=== PATIENT | female | born 1985 ===

== ENCOUNTER 2017-05-28 23:34 | Inpatient (IN) | payer MEDICAID ==
[~2017-05-28 23:34] MED LIST: Naloxone 0.4 mg/ml Inj (Adult) IVP STA
[2017-05-28] MEDS ORDERED: Naloxone 0.4 mg/ml Inj (Adult) IVP ONE (23:37)
[2017-05-28] MEDS ORDERED: Etomidate 20 mg/10ml Inj IV STA (23:39)
[2017-05-28] MEDS ORDERED: Succinylcholine 200 mg/10 ml Inj IV STA (23:39)
[2017-05-28] MEDS ORDERED: Propofol 10 mg/ml 1,000 MG/100 ML VIAL ONE (23:45)
[2017-05-28] MEDS: Propofol 10 mg/ml 1,000 MG/100 ML VIAL IV PRN (23:50)
--- NOTE | 2017-05-29 00:05 | ED PDOC ---
Arrival/HPI - General Time Seen by Provider: 05/29/17 00:01 Historian: Partner, EMS EM Caveat: Intubated - Critical Care Critical Care Minutes: Other (35 minutes) - History of Present Illness Narrative History of Present Illness (Text): 05/28/17 23:30 32 year old female, whose past medical history includes congenital absent left main, bypass surgery several years ago, AICD, and hypomagnesemia, presents to the emergency department by BLS for witnessed cardiac arrest. Patient's partner reports she was found unresponsive in the basement. He reports patient was found on the floor, turning blue, and urinated on herself. Before going downstairs partner states she took 30mg of Oxycontin. Partner preformed CPR until BLS came. Respiratory therapist was paged. Upon arrival patient was slightly responsive and give 2 doses of Narcan and began vomiting. Patient was intubated for airway protection. Partner reports no related history of substance abuse or history of smoking. HPI and ROS limited due to patient being intubated and decreased mental status. Lung Puller: Dr. Modi PMD: Dr. Hinkle Time/Duration: Prior to Arrival, 1/2 hour Symptom Onset: Sudden Symptom Course: Unchanged Context: Home Past Medical History - Provider Review Nursing Documentation Reviewed: Yes - Cardiac Hx Pacemaker: Yes Other/Comment: congential - Surgical History Hx Coronary Artery Bypass Graft: Yes - Anesthesia Hx Anesthesia: No - Suicidal Assessment Feels Threatened In Home Enviroment: No Family/Social History - Physician Review Nursing Documentation Reviewed: Yes Family/Social History: No Known Family HX Smoking Status: Never Smoked Allergies/Home Meds Allergies/Adverse Reactions: Allergies No Known Allergies Allergy (Verified 05/29/17 00:02) Home Medications: Home Meds Medication Instructions Recorded Confirmed Unobtainable 05/29/17 05/29/17 Review of Systems - Physician Review All systems were reviewed & negative as marked: Yes - Review of Systems Systems not reviewed;Unavailable: Intubated Physical Exam Vital Signs Reviewed: Yes Vital Signs Temp Pulse Resp BP Pulse Ox 05/29/17 04:04 153 H 32 H 107/62 50 L 05/29/17 03:30 151 H 32 H 102/46 L 52 L 05/29/17 03:17 147 H 30 H 104/44 L 47 L 05/29/17 03:04 137 H 32 H 91/62 L 57 L 05/29/17 03:02 136 H 30 H 83/49 L 53 L 05/29/17 02:50 137 H 28 H 94/48 L 31 L 05/29/17 02:45 136 H 28 H 118/55 L 48 L 05/29/17 02:38 28 H 48 L 05/29/17 02:30 117/70 05/29/17 02:17 129 H 28 H 117/76 52 L 05/29/17 02:08 109/82 05/29/17 02:02 121 H 28 H 109/82 68 L 05/29/17 01:47 123 H 26 H 112/43 L 98 05/29/17 01:36 117 H 28 H 104/65 73 L 05/29/17 01:32 28 H 73 L 05/29/17 01:17 115 H 30 H 118/70 79 L 05/29/17 01:02 106 H 36 H 106/64 90 L 05/29/17 00:46 91 H 42 H 118/70 97 05/29/17 00:32 93 H 24 112/84 97 05/28/17 23:58 109 H 24 137/82 95 05/28/17 23:45 115 H 24 165/104 H 99 05/28/17 23:34 98.1 F 101 H 18 134/102 H 97 - Systems Exam Head: Present: Normocephalic Pupils: Present: Other (2 minimal reactive and equal ) Extroacular Muscles: Present: EOMI Conjunctiva: Present: Normal Mouth: Present: Moist Mucous Membranes Neck: Present: Normal Range of Motion Respiratory/Chest: Present: Rhonchi (Rhonchi bilaterally), Other ((+) Intubation. (+)Vomiting in air way. (+)Midline scars on chest) Cardiovascular: Present: Regular Rate and Rhythm, Normal S1, S2. No: Murmurs Abdomen: Present: Distention (Mildly distended), Normal Bowel Sounds. No: Tenderness, Peritoneal Signs Back: Present: Normal Inspection Upper Extremity: Present: Normal Inspection. No: Cyanosis, Edema Lower Extremity: Present: Edema (1+ edema Bilaterally ) Skin: Present: Pale, Other (Cool to touch ). No: Rashes Medical Decision Making ED Course and Treatment: 05/28/17 23:30 Impression: 32 year old female presents for Cardiac Arrest. Patient was found unresponsive and intubation was done. Differential Diagnosis included but are not limited to: Overdose VS Seizure VS Vtac VS PE VS Brain hemorrhage Plan: -- ABG -- CT Cervical Spin -- CT head -- Labs -- Chest X-ray -- IV Fluids -- Diprivan -- Urinary Catheter insertion -- HCG -- Urinalysis -- Reassess and disposition Prior Visits: Notes and results from previous visits were reviewed. Patient was last seen in the emergency department on 03/24/14 complaining of chest pain with deep inspiration. Patient was discharged. Progress Notes: 05/28/17 23:30 Critical Care: Patient was seen immediately on arrival because of high probability of imminent or life threatening deterioration in patient's condition. Initial assessment, history, and exam were done. Information was taken from transport personnel. Patient was observed at bedside for initial response to treatment. Doctor Ruddy was contacted, and case discussed. Paged Respiratory Therapist paged. Sandy 05/28/17 23:43 23:32 and 23:36 2 doses of Narcon given and patient began to vomit. Suction tube interested and given patient 8mg of Zofran 05/28/17 23:43 PROCEDURE: INTUBATION Performed by the emergency provider Time: 23:43 Consent: Discussion of the risks, benefits, and alternatives to the procedure, along with informed consent family member was precluded by the urgency of the procedure and the patient condition. Timeout: A timeout to verify the correct patient, procedure, and site was performed. Indication: Airway protection and decreased mental status Pre-oxygenation: [id number] Medications: See MAR for details. ETT Size: 7 Confirmation: Cords directly visualized as tube passed, good bilateral breath sounds, positive CO2 detector color change, tube fogging, adequate chest rise, improving pulse oximetry reading, improved skin color, and absence of gastric sounds,. ETT Secured: The cuff was inflated and the tube was secured appropriately at a distance of 20cm at the lip. Post-Procedure: First attempted likely esophageal with no imminent desaturation. Attempted intubation with 7 tube with good color change and bilareral air sounds. Saturations somewhat better. tracheal Deep suction through tube which improved her saturation. Patient was given Propofol post- procedure. CXR Confirmation: Yes 05/29/17 00:03 Discussed case with Patient's medical record consultant Dr. Fox who is aware of patient's condition. Dr. Fox reports history of vtach and absent left main. Patient operated bypass surgery several years ago. Patient had an AICD put in several years ago. Dr. Fox reports no medical problems expect patient is hypomagnesemia. 05/29/17 01:16 Called to bed side patient began to desaturate. Adjusted tube placement and adjusted vent . Increased peep with moderate improvement. Increasingly difficult to oxygenate. Chest X-ray shows bilaterally diffuse airspace disease and ARDS 05/29/17 01:[address] ICU [address] Table Operator Dr. Garcia called to assisted and agrees with possible severe ARDS VS aspiration. Currently attempting to keep oxygenated as best as we can. EXAM: XR Chest, 1 View Dictated and Authenticated by: Elsie Jennings MD 05/29/2017 1:51 AM IMPRESSION: Tubes and catheters as described; bilateral perihilar airspace disease suggesting pulmonary edema; probable left lower lobe retrocardiac atelectasis 05/29/17 02:16 EKG shows Sinus tachy at 104 BPM with non-specific ST wave at V2, V6, VL. No ST elevations. Normal QTC [id number]. Interpreted by me. 05/29/17 02:50 PROCEDURE: CENTRAL LINE PLACEMENT Performed by the emergency provider, Time: 02:50 Consent: Discussion of the risks, benefits, and alternatives to the procedure, along with informed consent partner was precluded by the urgency of the procedure and the patient condition. Timeout: A timeout to verify the correct patient, procedure, and site was performed. Indication: Emergent access for critical drugs Anesthesia: Local anesthesia: None Skin Preparation: Hand hygiene performed prior to central venous catheter insertion. Sterile field, sterile drape, sterile technique, and cap and gown were used. The area was cleansed with 2% Chlorhexidine. Patient position: Supine Location: Left femoral Ultrasound guidance: No Technique: The landmarks for the line placement were identified. The vessel was cannulated and a non-tunneled 7.0 Fr triple lumen central line was placed using the Seldinger technique. Successful placement: Yes. Line sutured with silk and appropriate dressing applied. Assessment: Good patency and blood return through all three lumens. The ports were appropriately flushed. See post procedure Post-procedure: Patient tolerated the procedure well with no immediate complications. 05/29/17 03:20 Unable to oxygenate her likely due to large A-a gradiaent. Case discussed with Resident and Dr. Garcia who is aware and agrees with the plan. Patient will be admitted to ICU. pt remains in critical condition due to difficult oxygenation. 06/02/17 03:46 Reassessment Condition: Re-examined, Improving,but remains with symptoms - Critical Care Critical Care Minutes: 75 minutes, Other (35 minutes ) - Lab Interpretations Microbiology Results: Microbiology Results 05/29/17 00:03 Blood-Venous Blood Culture - Preliminary NO GROWTH AFTER 3 DAYS Lab Results: 05/29/17 00:00 Lab Results 05/29/17 01:45: pCO2 53 H, pO2 36.0 L*, HCO3 19.8 L, ABG pH 7.18 L*, ABG Total CO2 21.4 L, ABG O2 Saturation 64.5 L, ABG O2 Content 8.1 L, ABG Base Excess - 8.3 L, ABG Hemoglobin 9.1 L, ABG Carboxyhemoglobin 1.8 H, POC ABG HHb (Measured ) 34.6 H, ABG Methemoglobin 0.6, ABG O2 Capacity 12.6 L, Hgb O2 Saturation 63.0 L, FiO2 100.0 05/29/17 00:00: Alcohol, Quantitative < 10 05/29/17 00:00: Sodium 138, Potassium 3.4 L, Chloride 105, Carbon Dioxide 14 L, Anion Gap 22 H, BUN 11, Creatinine 0.9, Est GFR ( Amer) > 60, Est GFR ( Non-Af Amer) > 60, Random Glucose 247 H, Calcium 9.0, Magnesium 2.3 H, Total Bilirubin 0.2, AST 58 H, ALT 52, Alkaline Phosphatase 45, Lactate Dehydrogenase 592, Total Creatine Kinase 156, Troponin I < 0.01, NT-Pro-B Natriuret Pep 575 H , Total Protein 6.8, Albumin 3.9, Globulin 2.9, Albumin/Globulin Ratio 1.4, Lipase 159 I have reviewed the lab results: Yes Interpretation: Abnormal lab values - RAD Interpretation Radiology Orders: 05/29/17 00:05 X-RAY [CHEST PORTABLE] [RAD] Stat - EKG Interpretation Interpreted by ED Physician: Yes Type: 12 lead EKG - Medication Orders Current Medication Orders: Discontinued Medications Albuterol/Ipratropium (Duoneb 3 Mg/0.5 Mg (3 Ml) Ud) 3 ml IH STAT STA Stop: 05/29/17 01:37 Last Admin: 05/29/17 01:36 Dose: 3 ml Etomidate (Amidate) 20 mg IV ONCE STA Stop: 05/28/17 23:40 Last Admin: 05/28/17 23:39 Dose: 20 mg eMAR Start Stop Document 05/28/17 23:39 ND (Rec: 05/29/17 05:20 ND [id number]) Intravenous Solution Start Date 05/28/17 Start Time 23:39 End Date 05/28/17 End time 23:40 Total Infusion Time 1 Furosemide (Lasix) 40 mg IVP STAT STA Stop: 05/29/17 02:08 Last Admin: 05/29/17 03:21 Dose: Furosemide (Lasix) 40 mg IVP STAT STA Stop: 05/29/17 02:27 Last Admin: 05/29/17 02:30 Dose: 40 mg MAR Blood Pressure Document 05/29/17 02:30 SS (Rec: 05/29/17 05:07 SS [id number]) Blood Pressure Blood Pressure (100/60-150/90) 117/70 IVP Administration Document 05/29/17 02:30 SS (Rec: 05/29/17 05:07 SS [id number]) Charges for Administration # of IVP Administrations 1 Hydromorphone HCl (Dilaudid) 1 mg IVP STAT STA Stop: 05/29/17 01:01 Last Admin: 05/29/17 04:59 Dose: Magnesium Sulfate 2 gm/ Sodium (Chloride) 104 mls @ 102 mls/hr IVPB ONCE ONE Stop: 05/29/17 01:10 Last Admin: 05/29/17 03:32 Dose: Propofol (Diprivan) 1,000 mg in 100 mls @ 2.913 mls/hr IV .Q24H PRN; Protocol; 5 MCG/KG/MIN PRN Reason: TITRATE PER MD ORDER Last Admin: 05/29/17 05:33 Dose: 15 mcg/kg/min, 8.739 mls/hr eMAR Start Stop Document 05/29/17 05:33 JIHAN (Rec: 05/29/17 05:34 JIHAN [facility] [place]14ICUP) Intravenous Solution Start Date 05/29/17 Start Time 05:34 Titration Intervention Document 05/29/17 05:33 JIHAN (Rec: 05/29/17 05:34 JIHAN [facility] [id number]) Titration Intake Cumulative Intake (Rx) 100 Waste Amount 0 Container Volume 100 Titration Dosing Titration Dose 15 IV Rate 8.739 Intake/Decrease Started/Increased Cumulative Dose 1000 Sodium Chloride (Sodium Chloride 0.9%) 1,000 mls @ 999 mls/hr IV .Q1H1M STA Stop: 05/29/17 01:12 Last Admin: 05/28/17 23:40 Dose: 999 mls/hr eMAR Start Stop Document 05/28/17 23:40 SS (Rec: 05/29/17 04:55 SS [id number]) Intravenous Solution Start Date 05/28/17 Start Time 23:40 End Date 05/29/17 End time 00:15 Total Infusion Time 35 Levofloxacin/Dextrose (Levaquin 750mg) 750 mg in 150 mls @ 100 mls/hr IVPB STAT STA PRN Reason: Protocol Stop: 05/29/17 03:47 Last Admin: 05/29/17 03:08 Dose: 100 mls/hr eMAR Start Stop Document 05/29/17 03:08 SS (Rec: 05/29/17 05:06 SS [id number]) Intravenous Solution Start Date 05/29/17 Start Time 03:08 Nitroglycerin/Dextrose (Nitroglycerin 50 Mg/250 Ml D5w) 50 mg in 250 mls @ 1.5 mls/hr IV .Q24H PRN; 5 MCG/MIN PRN Reason: reduce pre load Last Admin: 05/29/17 02:21 Dose: 1.5 mls/hr eMAR Start Stop Document 05/29/17 02:21 SS (Rec: 05/29/17 05:11 SS [id number]) Intravenous Solution Start Date 05/29/17 Start Time 02:21 End Date 05/29/17 End time 02:50 Total Infusion Time 29 MAR Pulse and Blood Pressure Document 05/29/17 02:21 SS (Rec: 05/29/17 05:11 SS [id number]) Pulse Pulse Rate (60-90) 129 Blood Pressure Blood Pressure (100/60-150/90) 117/76 Meropenem 1 gm/ Sodium (Chloride) 100 mls @ 100 mls/hr IVPB STAT STA Stop: 05/29/17 03:33 Last Admin: 05/29/17 05:36 Dose: 100 mls/hr eMAR Start Stop Document 05/29/17 05:36 JIHAN (Rec: 05/29/17 05:36 JIHAN [facility] [id number]) Intravenous Solution Start Date 05/29/17 Start Time 05:36 End Date 05/29/17 End time 06:36 Total Infusion Time 60 Sodium Bicarbonate 100 meq/ (Dextrose/Sodium Chloride) 1,100 mls @ 100 mls/hr IV .Q11H STA Stop: 05/29/17 14:36 Last Admin: 05/29/17 06:00 Dose: 100 mls/hr eMAR Start Stop Document 05/29/17 06:00 JIHAN (Rec: 05/29/17 06:00 JIHAN [facility] [id number]) Intravenous Solution Start Date 05/29/17 Start Time 06:00 End Date 05/29/17 End time 18:00 Total Infusion Time 720 Potassium Chloride (Potassium Chloride 10 Meq/100 Ml) 10 meq in 100 mls @ 50 mls/hr IVPB Q2H JAYDEN Stop: 05/29/17 07:59 Last Admin: 05/29/17 05:58 Dose: 50 mls/hr eMAR Start Stop Document 05/29/17 05:58 JIHAN (Rec: 05/29/17 05:58 JIHAN [facility] [id number]) Intravenous Solution Start Date 05/29/17 Start Time 05:58 End Date 05/29/17 Dexmedetomidine HCl (Precedex 4 Mcg/Ml (100 Ml)) 400 mcg in 100 mls @ 4.855 mls /hr IV .[id number] PRN; Protocol; 0.2 MCG/KG/HR PRN Reason: Sedation Potassium Chloride (Potassium Chloride 10 Meq/100 Ml) 10 meq in 100 mls @ 50 mls/hr IVPB ONCE ONE Stop: 05/29/17 09:37 Last Admin: 05/29/17 07:41 Dose: 50 mls/hr eMAR Start Stop Document 05/29/17 07:41 JIHAN (Rec: 05/29/17 07:41 JIHAN [facility] [id number]) Intravenous Solution Start Date 05/29/17 Start Time 07:41 End Date 05/29/17 Potassium Chloride (Potassium Chloride 10 Meq/100 Ml) 10 meq in 100 mls @ 50 mls/hr IVPB ONCE ONE Stop: 05/29/17 09:38 Last Admin: 05/29/17 07:40 Dose: 50 mls/hr eMAR Start Stop Document 05/29/17 07:40 GLI (Rec: 05/29/17 10:52 GLI [facility] [place]14ICUP) Intravenous Solution Start Date 05/29/17 Start Time 07:40 End Date 05/29/17 Vasopressin 20 units/ Dextrose 101 mls @ 9.09 mls/hr IV .Q11H7M JAYDEN; 0.03 U/MIN PRN Reason: Protocol Last Admin: 05/29/17 08:10 Dose: 9.09 mls/hr eMAR Start Stop Document 05/29/17 08:10 GLI (Rec: 05/29/17 10:55 GLI [facility] [place]14ICUP) Intravenous Solution Start Date 05/29/17 Start Time 08:10 End Date 05/29/17 MAR Blood Pressure Document 05/29/17 08:10 GLI (Rec: 05/29/17 10:55 GLI [facility] [place]14ICUP) Blood Pressure Blood Pressure (100/60-150/90) 60/38 Lorazepam (Ativan) 2 mg IVP ONCE ONE PRN Reason: Protocol Stop: 05/29/17 01:01 Last Admin: 05/29/17 00:48 Dose: 2 mg IVP Administration Document 05/29/17 00:48 SS (Rec: 05/29/17 04:57 SS [id number]) Charges for Administration # of IVP Administrations 1 Naloxone HCl (Narcan) 0.4 mg IVP ONCE STA Stop: 05/28/17 23:28 Last Admin: 05/28/17 23:34 Dose: 0.4 mg IVP Administration Document 05/28/17 23:34 ND (Rec: 05/29/17 05:18 ND [id number]) Charges for Administration # of IVP Administrations 1 Naloxone HCl (Narcan) 0.4 mg IVP ONCE ONE Stop: 05/28/17 23:38 Last Admin: 05/28/17 23:37 Dose: 0.4 mg IVP Administration Document 05/28/17 23:37 ND (Rec: 05/29/17 05:24 ND [id number]) Charges for Administration # of IVP Administrations 1 Ondansetron HCl (Zofran Inj) 8 mg IVP ONCE STA Stop: 05/28/17 23:39 Last Admin: 05/28/17 23:38 Dose: 8 mg IVP Administration Document 05/28/17 23:38 ND (Rec: 05/29/17 05:23 ND [id number]) Charges for Administration # of IVP Administrations 1 Rocuronium Hawkeye (Zemuron) 50 mg IVP ONCE ONE Stop: 05/29/17 00:59 Last Admin: 05/29/17 01:02 Dose: 50 mg IVP Administration Document 05/29/17 01:02 SS (Rec: 05/29/17 05:00 SS [id number]) Charges for Administration # of IVP Administrations 1 Sodium Bicarbonate (Sodium Bicarbonate 8.4% (50 Meq) Syringe) 50 meq IVP ONCE ONE Stop: 05/29/17 02:33 Last Admin: 05/29/17 02:40 Dose: 50 meq IVP Administration Document 05/29/17 02:40 ND (Rec: 05/29/17 03:19 ND [id number]) Charges for Administration # of IVP Administrations 1 Sodium Bicarbonate (Sodium Bicarbonate 8.4% (50 Meq) Syringe) 50 meq IVP ONCE STA Stop: 05/29/17 02:46 Last Admin: 05/29/17 02:50 Dose: 50 meq IVP Administration Document 05/29/17 02:50 ND (Rec: 05/29/17 03:27 ND [id number]) Charges for Administration # of IVP Administrations 1 Succinylcholine Chloride (Quelicin) 100 mg IV ONCE STA Stop: 05/28/17 23:40 Last Admin: 05/28/17 23:39 Dose: 100 mg eMAR Start Stop Document 05/28/17 23:39 ND (Rec: 05/29/17 05:22 ND [id number]) Intravenous Solution Start Date 05/28/17 Start Time 23:40 End Date 05/28/17 End time 23:41 Total Infusion Time 1 - Scribe Statement The provider has reviewed the documentation as recorded by the Lola Angelo Provider Scribe Attestation: All medical record entries made by the Scribe were at my direction and personally dictated by me. I have reviewed the chart and agree that the record accurately reflects my personal performance of the history, physical exam, medical decision making, and the department course for this patient. I have also personally directed, reviewed, and agree with the discharge instructions and disposition. Disposition/Present on Arrival - Present on Arrival Any Indicators Present on Arrival: No History of DVT/PE: No History of Uncontrolled Diabetes: No Urinary Catheter: No History Surgical Site Infection Following: None - Disposition Have Diagnosis and Disposition been Completed?: Yes Diagnosis: Respiratory failure with hypoxia Disposition: HOSPITALIZED Disposition Time: 02:00 Patient Plan: ICU Condition:
[2017-05-29] MEDS ORDERED: Magnesium Sulfate 2 GM in Sodium Chloride 0.9% 100 ML IVPB ONE (00:09)
[2017-05-29] MEDS ORDERED: Sodium Chloride 0.9% 1,000 ML IV STA (00:12)
[2017-05-29 00:39] LABS: ALB/GLOB RATIO 1.4 (1.1-1.8); ALBUMIN 3.9 g/dL (3.0-4.8); ALT/SGPT 52 U/L (7-56); AST/SGOT 58 U/L (14-36); BLOOD UREA NITROGEN 11 mg/dL (7-21); GFR AFRICAN-AMERICAN > 60; GFR NON-AFRICAN AMERICAN > 60; LIPASE 159 U/L (23-300); MAGNESIUM 2.3 mg/dL (1.7-2.2)
[2017-05-29 00:50] LABS: B-TYPE NATRIURETIC PEPTIDE 575 pg/mL (0-450); TROPONIN I < 0.01 ng/mL
[2017-05-29] MEDS ORDERED: Rocuronium 10 mg/ml (5 ml) IVP ONE (00:58)
[2017-05-29] MEDS ORDERED: HYDROmorphone 1 mg/ml ISec IVP STA (01:00)
[2017-05-29] MEDS ORDERED: Albuterol-Ipratrop 3 mg / 0.5 (3 ml) UD ONE (01:36)
[2017-05-29] MEDS ORDERED: Albuterol-Ipratrop 3 mg / 0.5 (3 ml) UD IH STA (01:36)
--- NOTE | 2017-05-29 01:51 | RAD ---
EXAM: XR Chest, 1 View EXAM DATE/TIME: 05/29/2017 12:05 AM CLINICAL HISTORY: 32 years old, female; Abnormal findings; Other: Intubated; coronary artery disease; prior bypass surgery TECHNIQUE: Frontal view of the chest. COMPARISON: There are no prior studies for comparison. FINDINGS: Tubes and catheters: Endotracheal tube is in place. Tip of the tube is at the level of the thoracic inlet. Nasogastric tube is present. Side port and tip projects in the stomach. There are pacer/defibrillator leads. There is no pacing apparatus. Heart, mediastinum and tesha: Heart size is normal. Mediastinal and hilar contours are unremarkable. Vascularity: Vascularity is difficult to evaluate. Lungs: There is bilateral airspace disease greatest in a perihilar distribution. There is left retrocardiac opacity. Pleural spaces: There may be a small left effusion. Bony structures: There are postsurgical changes of median sternotomy. Upper abdomen: There is a paucity of bowel gas in the upper abdomen IMPRESSION: Tubes and catheters as described; bilateral perihilar airspace disease suggesting pulmonary edema; probable left lower lobe retrocardiac atelectasis
[2017-05-29 01:53] LABS: ARTERIAL BLOOD GAS HCO3 19.8 mmol/L (21-28); ARTERIAL BLOOD GAS HEMOGLOBIN 9.1 g/dL (11.7-17.4); ARTERIAL BLOOD GAS O2 CAPACITY 12.6 mL/dl (16-24); ARTERIAL BLOOD GAS O2 CONTENT 8.1 ML/dl (15-23); ARTERIAL BLOOD GAS O2 SAT 64.5 % (95-98); ARTERIAL BLOOD GAS PCO2 53 mm/Hg (35-45); ARTERIAL BLOOD GAS TCO2 21.4 mmol.L (22-28)
[2017-05-29] MEDS ORDERED: levoFLOXacin 750 mg in D5W 750 MG/150 ML BAG IVPB STA (02:18)
[2017-05-29] MEDS ORDERED: Meropenem IV 1 gm in NS 50 ML IVPB STA (02:19)
[2017-05-29] MEDS ORDERED: Nitroglycerin 50mg in D5W 50 MG/250 ML BOTTLE IV PRN (02:21)
[2017-05-29] MEDS ORDERED: Sodium Bicarbonate (8.4%) 50 Meq Syringe IVP ONE (02:32)
[2017-05-29] MEDS ORDERED: Meropenem 1 GM in Sodium Chloride 0.9% 100 ML IVPB STA (02:34)
[2017-05-29] MEDS ORDERED: Rocuronium 10 mg/ml (5 ml) ONE (02:45)
[2017-05-29] MEDS ORDERED: Sodium Bicarbonate (8.4%) 50 Meq Syringe IVP STA (02:45)
[2017-05-29 02:50] LABS: URINE BILIRUBIN NEGATIVE (NEGATIVE); URINE BLOOD SMALL (NEGATIVE); URINE GLUCOSE (UA) 100 mg/dL (NEGATIVE); URINE LEUKOCYTE ESTERASE NEGATIVE Leu/uL (NEGATIVE); URINE NITRATE NEGATIVE (NEGATIVE); URINE PROTEIN 100 mg/dL (<30 mg/dL); URINE UROBILINOGEN 0.2 E.U./dL (<1 E.U./dL)
[2017-05-29 02:52] LABS: URINE COLOR LIGHT YELLOW (YELLOW)
[2017-05-29 02:53] LABS: URINE APPEARANCE CLEAR (CLEAR)
[2017-05-29 02:58] LABS: ARTERIAL BLOOD GAS PH 7.18 (7.35-7.45)
[2017-05-29 03:03] LABS: BARBITURATES, UR NEGATIVE (NEGATIVE); BENZODIAZEPINES, UR NEGATIVE (NEGATIVE); OPIATES, UR NEGATIVE (NEGATIVE); PHENCYCLIDINE, UR NEGATIVE (NEGATIVE)
[2017-05-29 03:13] LABS: URINE BACTERIA FEW (NEG); URINE EPITHELIAL CELLS 0 - 2 /hpf (0-5); URINE WBC 0 - 2 /hpf (0-6)
--- NOTE | 2017-05-29 03:22 | CP.PCM.CON ---
History of Present Illness - History of Present Illness History of Present Illness: PGY-2 ICU consult 32 year old female with past medical history of congenital absent left main, bypass surgery several years ago, AICD, and hypomagnesemia, presents to the emergency department by for witnessed cardiac arrest. Patient's partner at bedside reports she was found unresponsive in the basement. He he heard a thump and found her on the floor and she had urinated on herself. He starts there was about 2-3 minutes before he found the patient and another 3-5 before EMS arrived. Per partner, EMS gave her narcan, and began compressions with possible shock. He states that before going downstairs partner states she took 30mg of Oxycontin. Partner preformed CPR until BLS came. Per ED note upon arrival patient was slightly responsive and give 2 doses of Narcan and began vomiting. Patient was intubated for airway protection. She received IVF. Partner reports no related history of substance abuse or history of smoking. HPI and ROS limited due to patient being intubated and decreased mental status. Past Patient History - Past Social History Smoking Status: Never Smoked - CARDIAC Hx Pacemaker: Yes Other/Comment: congential - PSYCHIATRIC Hx Substance Use: Yes - SURGICAL HISTORY Hx Coronary Artery Bypass Graft: Yes - ANESTHESIA Hx Anesthesia: No Meds Allergies/Adverse Reactions: Allergies Allergy/AdvReac Type Severity Reaction Status Date / Time No Known Allergies Allergy Verified 05/29/17 00:02 - Medications Medications: Current Medications Propofol (Diprivan) 1,000 mg in 100 mls @ 2.913 mls/hr IV .Q24H PRN; Protocol; 5 MCG/KG/MIN PRN Reason: TITRATE PER MD ORDER Levofloxacin/Dextrose (Levaquin 750mg) 750 mg in 150 mls @ 100 mls/hr IVPB STAT STA PRN Reason: Protocol Stop: 05/29/17 03:47 Nitroglycerin/Dextrose (Nitroglycerin 50 Mg/250 Ml D5w) 50 mg in 250 mls @ 1.5 mls/hr IV .Q24H PRN; 5 MCG/MIN PRN Reason: reduce pre load Meropenem 1 gm/ Sodium (Chloride) 100 mls @ 100 mls/hr IVPB STAT STA Stop: 05/29/17 03:33 Sodium Bicarbonate (Sodium Bicarbonate 8.4% (50 Meq) Syringe) 50 meq IVP ONCE STA Stop: 05/29/17 02:46 Results - Vital Signs Recent Vital Signs: Last Vital Signs Temp Pulse Resp BP 109/82 05/29/17 02:08 Pulse Ox - Labs Result Diagrams: 05/29/17 00:00 Labs: Laboratory Results - last 24 hr 05/29/17 05/29/17 05/29/17 00:00 00:00 01:45 pCO2 53 H pO2 36.0 L* HCO3 19.8 L ABG pH 7.18 L* ABG Total CO2 21.4 L ABG O2 Saturation 64.5 L ABG O2 Content 8.1 L ABG Base Excess -8.3 L ABG Hemoglobin 9.1 L ABG Carboxyhemoglobin 1.8 H POC ABG HHb (Measured) 34.6 H ABG Methemoglobin 0.6 ABG O2 Capacity 12.6 L Hgb O2 Saturation 63.0 L FiO2 100.0 Sodium 138 Potassium 3.4 L Chloride 105 Carbon Dioxide 14 L Anion Gap 22 H BUN 11 Creatinine 0.9 Est GFR ( Amer) > 60 Est GFR (Non-Af Amer) > 60 Random Glucose 247 H Calcium 9.0 Magnesium 2.3 H Total Bilirubin 0.2 AST 58 H ALT 52 Alkaline Phosphatase 45 Lactate Dehydrogenase 592 Total Creatine Kinase 156 Troponin I < 0.01 NT-Pro-B Natriuret Pep 575 H Total Protein 6.8 Albumin 3.9 Globulin 2.9 Albumin/Globulin Ratio 1.4 Lipase 159 Urine Color Urine Appearance Urine pH Ur Specific [place] Urine Protein Urine Glucose (UA) Urine Ketones Urine Blood Urine Nitrate Urine Bilirubin Urine Urobilinogen Ur Leukocyte Esterase Urine RBC Urine WBC Ur Epithelial Cells Urine Bacteria Urine Opiates Screen Urine Methadone Screen Ur Barbiturates Screen Ur Phencyclidine Scrn Ur Amphetamines Screen U Benzodiazepines Scrn U Oth Cocaine Metabols U Cannabinoids Screen Alcohol, Quantitative < 10 05/29/17 05/29/17 05/29/17 02:00 02:37 02:37 pCO2 pO2 HCO3 ABG pH ABG Total CO2 ABG O2 Saturation ABG O2 Content ABG Base Excess ABG Hemoglobin ABG Carboxyhemoglobin POC ABG HHb (Measured) ABG Methemoglobin ABG O2 Capacity Hgb O2 Saturation FiO2 Sodium Potassium Chloride Carbon Dioxide Anion Gap BUN Creatinine Est GFR ( Amer) Est GFR (Non-Af Amer) Random Glucose Calcium Magnesium Total Bilirubin AST ALT Alkaline Phosphatase Lactate Dehydrogenase Total Creatine Kinase Troponin I NT-Pro-B Natriuret Pep 580 H Total Protein Albumin Globulin Albumin/Globulin Ratio Lipase Urine Color Light yellow Urine Appearance Clear Urine pH 6.0 Ur Specific [place] 1.025 Urine Protein 100 H Urine Glucose (UA) 100 H Urine Ketones Negative Urine Blood Small H Urine Nitrate Negative Urine Bilirubin Negative Urine Urobilinogen 0.2 Ur Leukocyte Esterase Negative Urine RBC 2 - 5 Urine WBC 0 - 2 Ur Epithelial Cells 0 - 2 Urine Bacteria Few Urine Opiates Screen Negative Urine Methadone Screen Negative Ur Barbiturates Screen Negative Ur Phencyclidine Scrn Negative Ur Amphetamines Screen Negative U Benzodiazepines Scrn Negative U Oth Cocaine Metabols Negative U Cannabinoids Screen Negative Alcohol, Quantitative Assessment & Plan - Assessment and Plan (Free Text) Plan: pulm: - cxr showed bilateral perihilar airspace disease suggesting pulmonary edema, probable left lower lobe retrocardica atelectasis - will attempt to get CT chest - high a-a gradient - abx for aspiration PNE - nitro drip to reduce pre load - lasix2 doses of 40mg IV - mechanical ventilation cardio - Blood pressure and heart rate stable renal - metabolic acidosis - 1 amp bicarb
[2017-05-29] MEDS ORDERED: Sodium Bicarbonate 8.4% 100 MEQ in Dextrose 5%/0.45% NS 1,000 ML IV STA (03:37)
[2017-05-29 03:44] LABS: ARTERIAL BLOOD GAS HCO3 19.6 mmol/L (21-28); ARTERIAL BLOOD GAS O2 SAT 50.2 % (95-98); ARTERIAL BLOOD GAS PCO2 55 mm/Hg (35-45); ARTERIAL BLOOD GAS TCO2 21.3 mmol.L (22-28)
--- NOTE | 2017-05-29 03:57 | CP.PCM.HP ---
History of Present Illness - History of Present Illness History of Present Illness: PGY-2 ICU consult 32 year old female with past medical history of congenital absent left main, bypass surgery several years ago, AICD, and hypomagnesemia, presents to the emergency department by for witnessed cardiac arrest. Patient's partner at bedside reports she was found unresponsive in the basement. He he heard a thump and found her on the floor and she had urinated on herself. He starts there was about 2-3 minutes before he found the patient and another 3-5 before EMS arrived. Per partner, EMS gave her narcan, and began compressions with possible shock. He states that before going downstairs partner states she took 30mg of Oxycontin. Partner preformed CPR until BLS came. Per ED note upon arrival patient was slightly responsive and give 2 doses of Narcan and began vomiting. Patient was intubated for airway protection. She received IVF. Partner reports no related history of substance abuse or history of smoking. HPI and ROS limited due to patient being intubated and decreased mental status. PMH: congenital absent left main PSH: coronary artery bypass graft allergy: nkda social history: per partner never smoked Present on Admission - Present on Admission Any Indicators Present on Admission: No Past Patient History - Past Social History Smoking Status: Never Smoked - CARDIAC Hx Pacemaker: Yes Other/Comment: congential - PSYCHIATRIC Hx Substance Use: Yes - SURGICAL HISTORY Hx Coronary Artery Bypass Graft: Yes - ANESTHESIA Hx Anesthesia: No Meds Allergies/Adverse Reactions: Allergies Allergy/AdvReac Type Severity Reaction Status Date / Time No Known Allergies Allergy Verified 05/29/17 00:02 Results - Vital Signs Recent Vital Signs: Last Vital Signs Temp Pulse Resp BP 109/82 05/29/17 02:08 Pulse Ox - Labs Result Diagrams: 05/29/17 05:25 05/29/17 05:25 Labs: Laboratory Results - last 24 hr 05/29/17 05/29/17 05/29/17 02:00 02:37 02:37 NT-Pro-B Natriuret Pep 580 H Urine Color Light yellow Urine Appearance Clear Urine pH 6.0 Ur Specific [place] 1.025 Urine Protein 100 H Urine Glucose (UA) 100 H Urine Ketones Negative Urine Blood Small H Urine Nitrate Negative Urine Bilirubin Negative Urine Urobilinogen 0.2 Ur Leukocyte Esterase Negative Urine RBC 2 - 5 Urine WBC 0 - 2 Ur Epithelial Cells 0 - 2 Urine Bacteria Few Urine Opiates Screen Negative Urine Methadone Screen Negative Ur Barbiturates Screen Negative Ur Phencyclidine Scrn Negative Ur Amphetamines Screen Negative U Benzodiazepines Scrn Negative U Oth Cocaine Metabols Negative U Cannabinoids Screen Negative Assessment & Plan - Assessment and Plan (Free Text) Assessment: 32 year old female with past medical history of congenital absent left main, bypass surgery several years ago, AICD, and hypomagnesemia, presents to the emergency department by for witnessed cardiac arrest In ED patientw as found to have pulmonary edema bilaterally. Respiratory acidosis with metabolic acidosis Plan: Neuro: - patient is intubated and sedated - neuro check q1 - CT head ordered, once patient is stable - UDS was negative - percedex for sedation pulm: - cxr showed bilateral perihilar airspace disease suggesting pulmonary edema, probable left lower lobe retrocardica atelectasis - will attempt to get CT chest - high a-a gradient - abx for aspiration PNE - nitro drip to reduce pre load - lasix2 doses of 40mg IV - mechanical ventilation - abg showed respiratory acidosis with metabolic acidosis - will order repeat cxr and abg in AM cardio - s/p cardiac arrest - Blood pressure and heart rate stable - no pressors, received 2 liter IVF in ED renal - metabolic acidosis - 1 amp bicarb - abg showed metabolic acidosis - given 2 amp of bicarb - hopkalemia, replaced - correct electrolyte as needed ID - cbc pending, afebrile - aspirated before intubation high likelihood of aspiration PNE - blood cultures drawn - start meropenum and levofloxacin - will order procalcitonin
[2017-05-29] MEDS ORDERED: Dexmedetomidine HCl 4mcg/ml 400 MCG/100 ML BOTTLE IV PRN (04:22)
[2017-05-29] MEDS: Propofol 10 mg/ml 1,000 MG/100 ML VIAL IV PRN (05:33)
[2017-05-29 05:37] LABS: BASO # 0.01 K/mm3 (0.0-2.0); BASO % 0.3 % (0.0-3.0); EOS % 0.8 % (1.5-5.0); GRAN # 2.55 (1.4-6.5); GRAN % 64.8 % (50.0-68.0); HEMOGLOBIN 9.1 g/dL (12.0-16.0); LYMPH # 1.2 (1.2-3.4); LYMPH % 29.5 % (22.0-35.0); MEAN CELL VOLUME 61.2 fl (80.0-105.0); MEAN CORPUSCULAR HEMOGLOBIN 16.1 pg (25.0-35.0); MEAN CORPUSCULAR HGB CONC 26.4 g/dl (31.0-37.0); MONO # 0.2 (0.1-0.6); MONO % 4.6 % (1.0-6.0); PLATELET COUNT 566 10^3/uL (120.0-450.0); RBC 5.64 10^6/uL (3.5-6.1); RED CELL DISTRIBUTION WIDTH 20.7 % (11.5-14.5); WHITE BLOOD COUNT 3.9 10^3/ul (4.5-11.0)
[2017-05-29 06:30] LABS: ALB/GLOB RATIO 1.2 (1.1-1.8); ALBUMIN 3.5 g/dL (3.0-4.8); ALT/SGPT 61 U/L (7-56); AST/SGOT 90 U/L (14-36); BLOOD UREA NITROGEN 15 mg/dL (7-21); CALCIUM 7.8 mg/dL (8.4-10.5); GFR AFRICAN-AMERICAN > 60; GFR NON-AFRICAN AMERICAN > 60; MAGNESIUM 1.6 mg/dL (1.7-2.2)
[2017-05-29 07:26] LABS: ARTERIAL BLOOD GAS PH 7.16 (7.35-7.45)
[2017-05-29] MEDS ORDERED: NOREPINEPHRINE BIT/0.9 % NACL 8 MG/500 ML BAG IV ONE (07:37)
[2017-05-29 07:39] VITALS: BMI 27.1
[2017-05-29] MEDS ORDERED: Sodium Bicarbonate (8.4%) 50 Meq Syringe ONE (07:43)
[2017-05-29] MEDS ORDERED: Amiodarone 150 mg/D5W 100 ml 150 MG/100 ML BAG ONE (07:50)
[2017-05-29] MEDS ORDERED: Vasopressin 20 UNITS in Dextrose 5% In Water 100 ML IV SCH (08:00)
[2017-05-29 08:53] VITALS: BP 133/29; PULSE 25; RESP 18; O2SAT 5
--- NOTE | 2017-05-29 09:08 | CP.PCM.PRO ---
Pronouncement of Note - Clinical Findings Physical Exam: No Response Verbal/Painful Stimuli, Absent Peripheral Pulses{ Carotid & Femoral}, Absent Heart & Breath Sounds, No Pupillary Light Reflex, No Corneal Reflex, Pupils Fixed & Dilated, Absence of Vital Signs - Pronouncement Time Time of Pronouncement of : 08:37 - Notifications Pronouncement Notifications: Family Notified, Atending Notified Calender Operator Helper Notified: Yes - Autopsy Autopsy Requested: No - [place] [id number]
--- NOTE | 2017-05-29 09:44 | CON ---
DATE: 05/29/2017 CARDIOLOGY CONSULTATION HISTORY: The patient is a 32-year-old woman who is found on the floor after collapsing at home. CPR was started at home. The patient was brought to the emergency room by EMS where CPR was continued. She was intubated and brought up to the ICU. Over the course of the night, the patient remains in normal sinus rhythm and maintains a blood pressure. Until this morning when she became bradycardiac and lost her pulse, CPR again was started. PAST MEDICAL HISTORY: Includes a history of coronary bypass surgery for a congenitally absent left main artery. In addition, the patient has had a cardiomyopathy which was thought to be a cardiomyopathy but was able to conceive 2 children. The patient has also suffers from hypomagnesemia and which she has been on replacement. Her last cardiac testing was earlier this year when stress test was performed which revealed an ejection fraction that improved to 52% with no ischemic areas. ECHOCARDIOGRAM: Echocardiogram was unchanged. Pacemaker and defibrillator wires were seen in the RV. LABORATORY DATA: This morning, the patient's laboratories revealed a hemoglobin of 9.1. Her potassium was down to 2.4 with a magnesium of 1.6 in which she was given magnesium and potassium during the code. After extensive CPR for over an hour, which the patient received multiple medications, the patient never regained her blood pressure. Yogi Fox MD
--- NOTE | 2017-05-29 09:56 | RAD ---
HISTORY: intubation COMPARISON: No prior. FINDINGS: In situ ETT, tip of which lies approximately 5 point 8 cm above adali. NGT is present, the tip of which has not been included on this film though distal aspect lies well below EG junction. Upper two disconnected leads from a since removed pacemaker/defibrillator battery pack are again noted. LUNGS: Diffuse airspace disease most likely represent an pulmonary edema with alveolar-type infiltrates. PLEURA: No significant pleural effusion identified, no pneumothorax apparent. CARDIOVASCULAR: Normal. OSSEOUS STRUCTURES: No significant abnormalities. VISUALIZED UPPER ABDOMEN: Normal. OTHER FINDINGS: None. IMPRESSION: ETT and NGT as above. Diffuse airspace disease most likely represent an pulmonary edema with alveolar-type infiltrates.
[2017-05-29 10:25] VITALS: TEMP 96.6
--- NOTE | 2017-05-29 14:48 | CARD ---
APPROVED REPORT EKG Measurement Heart [id number] <Conclusion> Sinus tachycardia with fusion complexes Septal infarct, age undetermined T wave abnormality, nonspecific Abnormal ECG
--- NOTE | 2017-05-29 16:31 | CP.PCM.DIS ---
<Obdulio Javed - Last Filed: 05/29/17 16:09> Provider - Provider Date of Admission: 05/29/17 01:46 Attending physician: Jayy Vargas MD Primary care physician: Renetta Hinkle DO Consults: Cardio: Ruddy Time Spent in preparation of Discharge (in minutes): 45 Hospital Course - Lab Results Lab Results: Most Recent Lab Values WBC 3.9 10^3/ul (4.5-11.0) L D 05/29/17 05:25 RBC 5.64 10^6/uL (3.5-6.1) 05/29/17 05:25 Hgb 9.1 g/dL (12.0-16.0) L 05/29/17 05:25 Hct 34.5 % (36.0-48.0) L 05/29/17 05:25 MCV 61.2 fl (80.0-105.0) L 05/29/17 05:25 MCH 16.1 pg (25.0-35.0) L 05/29/17 05:25 MCHC 26.4 g/dl (31.0-37.0) L 05/29/17 05:25 RDW 20.7 % (11.5-14.5) H 05/29/17 05:25 Plt Count 566 10^3/uL (120.0-450.0) H 05/29/17 05:25 Gran % 64.8 % (50.0-68.0) 05/29/17 05:25 Lymph % (Auto) 29.5 % (22.0-35.0) 05/29/17 05:25 Phillips % (Auto) 4.6 % (1.0-6.0) 05/29/17 05:25 Eos % (Auto) 0.8 % (1.5-5.0) L 05/29/17 05:25 Baso % (Auto) 0.3 % (0.0-3.0) 05/29/17 05:25 Gran # 2.55 (1.4-6.5) 05/29/17 05:25 Lymph # 1.2 (1.2-3.4) 05/29/17 05:25 Phillips # 0.2 (0.1-0.6) 05/29/17 05:25 Eos # 0.0 (0.0-0.7) 05/29/17 05:25 Baso # 0.01 K/mm3 (0.0-2.0) 05/29/17 05:25 pCO2 55 mm/Hg (35-45) H 05/29/17 03:40 pO2 32.0 mm/Hg (80-100) L* 05/29/17 03:40 HCO3 19.6 mmol/L (21-28) L 05/29/17 03:40 ABG pH 7.16 (7.35-7.45) L* 05/29/17 03:40 ABG Total CO2 21.3 mmol.L (22-28) L 05/29/17 03:40 ABG O2 Saturation 50.2 % (95-98) L 05/29/17 03:40 ABG O2 Content 8.1 ML/dl (15-23) L 05/29/17 01:45 ABG Base Excess -8.9 mmol/L (-2.0-3.0) L 05/29/17 03:40 ABG Hemoglobin 9.1 g/dL (11.7-17.4) L 05/29/17 01:45 ABG Carboxyhemoglobin 1.8 % (0.5-1.5) H 05/29/17 01:45 POC ABG HHb (Measured) 34.6 % (0-5) H 05/29/17 01:45 ABG Methemoglobin 0.6 % (0.0-3.0) 05/29/17 01:45 ABG O2 Capacity 12.6 mL/dl (16-24) L 05/29/17 01:45 ABG Potassium 2.8 mmol/L (3.6-5.2) L 05/29/17 03:40 Hgb O2 Saturation 63.0 % (95.0-98.0) L 05/29/17 01:45 Sodium 143.0 mmol/L (132-148) 05/29/17 03:40 Chloride 111.0 mmol/L (98-107) H 05/29/17 03:40 Glucose 211 mg/dl (65-105) H 05/29/17 03:40 Lactate 6.2 mmol/L (0.7-2.1) H* 05/29/17 03:40 FiO2 100.0 % 05/29/17 03:40 Sodium 142 mmol/L (132-148) 05/29/17 05:25 Potassium 2.4 mmol/L (3.6-5.0) L* D 05/29/17 05:25 Chloride 106 mmol/L (98-107) 05/29/17 05:25 Carbon Dioxide 20 mmol/L (21-33) L 05/29/17 05:25 Anion Gap 18 (10-20) 05/29/17 05:25 BUN 15 mg/dL (7-21) 05/29/17 05:25 Creatinine 0.9 mg/dl (0.7-1.2) 05/29/17 05:25 Est GFR ( Amer) > 60 05/29/17 05:25 Est GFR (Non-Af Amer) > 60 05/29/17 05:25 Random Glucose 141 mg/dL (70-110) H 05/29/17 05:25 Calcium 7.8 mg/dL (8.4-10.5) L 05/29/17 05:25 Phosphorus 4.2 mg/dL (2.5-4.5) 05/29/17 05:25 Magnesium 1.6 mg/dL (1.7-2.2) L 05/29/17 05:25 Total Bilirubin 0.3 mg/dL (0.2-1.3) 05/29/17 05:25 AST 90 U/L (14-36) H D 05/29/17 05:25 ALT 61 U/L (7-56) H 05/29/17 05:25 Alkaline Phosphatase 60 U/L (38-126) 05/29/17 05:25 Lactate Dehydrogenase 592 U/L (333-699) 05/29/17 00:00 Total Creatine Kinase 156 U/L (35-230) 05/29/17 00:00 Troponin I < 0.01 ng/mL 05/29/17 00:00 NT-Pro-B Natriuret Pep 580 pg/mL (0-450) H 05/29/17 02:00 Total Protein 6.4 g/dL (5.8-8.3) 05/29/17 05:25 Albumin 3.5 g/dL (3.0-4.8) 05/29/17 05:25 Globulin 2.9 gm/dL 05/29/17 05:25 Albumin/Globulin Ratio 1.2 (1.1-1.8) 05/29/17 05:25 Lipase 159 U/L (23-300) 05/29/17 00:00 Arterial Blood Potassium 2.8 mmol/L (3.6-5.2) L 05/29/17 03:40 Urine Color Light yellow (YELLOW) 05/29/17 02:37 Urine Appearance Clear (CLEAR) 05/29/17 02:37 Urine pH 6.0 (4.7-8.0) 05/29/17 02:37 Ur Specific [place] 1.025 (1.005-1.035) 05/29/17 02:37 Urine Protein 100 mg/dL (<30 mg/dL) H 05/29/17 02:37 Urine Glucose (UA) 100 mg/dL (NEGATIVE) H 05/29/17 02:37 Urine Ketones Negative mg/dL (NEGATIVE) 05/29/17 02:37 Urine Blood Small (NEGATIVE) H 05/29/17 02:37 Urine Nitrate Negative (NEGATIVE) 05/29/17 02:37 Urine Bilirubin Negative (NEGATIVE) 05/29/17 02:37 Urine Urobilinogen 0.2 E.U./dL (<1 E.U./dL) 05/29/17 02:37 Ur Leukocyte Esterase Negative Amanda/uL (NEGATIVE) 05/29/17 02:37 Urine RBC 2 - 5 /hpf (0-2) 05/29/17 02:37 Urine WBC 0 - 2 /hpf (0-6) 05/29/17 02:37 Ur Epithelial Cells 0 - 2 /hpf (0-5) 05/29/17 02:37 Urine Bacteria Few (NEG) 05/29/17 02:37 Urine Opiates Screen Negative (NEGATIVE) 05/29/17 02:37 Urine Methadone Screen Negative (NEGATIVE) 05/29/17 02:37 Ur Barbiturates Screen Negative (NEGATIVE) 05/29/17 02:37 Ur Phencyclidine Scrn Negative (NEGATIVE) 05/29/17 02:37 Ur Amphetamines Screen Negative (NEGATIVE) 05/29/17 02:37 U Benzodiazepines Scrn Negative (NEGATIVE) 05/29/17 02:37 U Oth Cocaine Metabols Negative (NEGATIVE) 05/29/17 02:37 U Cannabinoids Screen Negative (NEGATIVE) 05/29/17 02:37 Alcohol, Quantitative < 10 mg/dL (0-10) 05/29/17 00:00 - Hospital Course Hospital Course: 32 year old female with past medical history of congenital absent left main, bypass surgery several years ago, AICD, and hypomagnesemia, presented to the emergency department for witnessed cardiac arrest. Patient's partner at bedside reported she was found unresponsive in the basement. He had heard a thump and found her on the floor and she had urinated on herself. He stated there was about 2-3 minutes before he found the patient and another 3-5 before EMS arrived. Per partner, EMS gave her narcan, and began compressions with possible shock. He stated that before going downstairs partner stated she took 30mg of Oxycontin. Partner preformed CPR until BLS came. Per ED note upon arrival patient was slightly responsive and give 2 doses of Narcan and began vomiting. Patient was intubated for airway protection. Patient was admitted to ICU. This AM, code blue was called on patient. On response, ACLS was initiated. However, after over an hour of CPR and multiple medications, ROSC was not achieved (see nursing notes for further details). Patient was pronounced at 8:37. Family was notified and was at bedside at time of . Discharge Exam - Additional Findings Additional findings: No Response Verbal/Painful Stimuli, Absent Peripheral Pulses{Carotid & Femoral} , Absent Heart & Breath Sounds, No Pupillary Light Reflex, No Corneal Reflex, Pupils Fixed & Dilated, Absence of Vital Signs Discharge Plan - Follow Up Plan Condition: Disposition: WITH WITHOUT AUTOPSY Referrals: Renetta Hinkle DO [Primary Care Provider] - <Vickie Garcia - Last Filed: 05/30/17 13:58> Provider - Provider Date of Admission: 05/29/17 01:46 Attending physician: Jayy Vargas MD Primary care physician: Renetta Hinkle DO Hospital Course - Lab Results Lab Results: Micro Results 05/29/17 05:00 Naris MRSA Culture (Admit) - Final MRSA NOT DETECTED Most Recent Lab Values WBC 3.9 10^3/ul (4.5-11.0) L D 05/29/17 05:25 RBC 5.64 10^6/uL (3.5-6.1) 05/29/17 05:25 Hgb 9.1 g/dL (12.0-16.0) L 05/29/17 05:25 Hct 34.5 % (36.0-48.0) L 05/29/17 05:25 MCV 61.2 fl (80.0-105.0) L 05/29/17 05:25 MCH 16.1 pg (25.0-35.0) L 05/29/17 05:25 MCHC 26.4 g/dl (31.0-37.0) L 05/29/17 05:25 RDW 20.7 % (11.5-14.5) H 05/29/17 05:25 Plt Count 566 10^3/uL (120.0-450.0) H 05/29/17 05:25 Gran % 64.8 % (50.0-68.0) 05/29/17 05:25 Lymph % (Auto) 29.5 % (22.0-35.0) 05/29/17 05:25 [place] % (Auto) 4.6 % (1.0-6.0) 05/29/17 05:25 Eos % (Auto) 0.8 % (1.5-5.0) L 05/29/17 05:25 Baso % (Auto) 0.3 % (0.0-3.0) 05/29/17 05:25 Gran # 2.55 (1.4-6.5) 05/29/17 05:25 Lymph # 1.2 (1.2-3.4) 05/29/17 05:25 [place] # 0.2 (0.1-0.6) 05/29/17 05:25 Eos # 0.0 (0.0-0.7) 05/29/17 05:25 Baso # 0.01 K/mm3 (0.0-2.0) 05/29/17 05:25 pCO2 55 mm/Hg (35-45) H 05/29/17 03:40 pO2 32.0 mm/Hg (80-100) L* 05/29/17 03:40 HCO3 19.6 mmol/L (21-28) L 05/29/17 03:40 ABG pH 7.16 (7.35-7.45) L* 05/29/17 03:40 ABG Total CO2 21.3 mmol.L (22-28) L 05/29/17 03:40 ABG O2 Saturation 50.2 % (95-98) L 05/29/17 03:40 ABG O2 Content 8.1 ML/dl (15-23) L 05/29/17 01:45 ABG Base Excess -8.9 mmol/L (-2.0-3.0) L 05/29/17 03:40 ABG Hemoglobin 9.1 g/dL (11.7-17.4) L 05/29/17 01:45 ABG Carboxyhemoglobin 1.8 % (0.5-1.5) H 05/29/17 01:45 POC ABG HHb (Measured) 34.6 % (0-5) H 05/29/17 01:45 ABG Methemoglobin 0.6 % (0.0-3.0) 05/29/17 01:45 ABG O2 Capacity 12.6 mL/dl (16-24) L 05/29/17 01:45 ABG Potassium 2.8 mmol/L (3.6-5.2) L 05/29/17 03:40 Hgb O2 Saturation 63.0 % (95.0-98.0) L 05/29/17 01:45 Sodium 143.0 mmol/L (132-148) 05/29/17 03:40 Chloride 111.0 mmol/L (98-107) H 05/29/17 03:40 Glucose 211 mg/dl (65-105) H 05/29/17 03:40 Lactate 6.2 mmol/L (0.7-2.1) H* 05/29/17 03:40 FiO2 100.0 % 05/29/17 03:40 Sodium 142 mmol/L (132-148) 05/29/17 05:25 Potassium 2.4 mmol/L (3.6-5.0) L* D 05/29/17 05:25 Chloride 106 mmol/L (98-107) 05/29/17 05:25 Carbon Dioxide 20 mmol/L (21-33) L 05/29/17 05:25 Anion Gap 18 (10-20) 05/29/17 05:25 BUN 15 mg/dL (7-21) 05/29/17 05:25 Creatinine 0.9 mg/dl (0.7-1.2) 05/29/17 05:25 Est GFR ( Amer) > 60 05/29/17 05:25 Est GFR (Non-Af Amer) > 60 05/29/17 05:25 POC Glucose (mg/dL) 148 mg/dL (65-110) H 05/29/17 07:35 Random Glucose 141 mg/dL (70-110) H 05/29/17 05:25 Calcium 7.8 mg/dL (8.4-10.5) L 05/29/17 05:25 Phosphorus 4.2 mg/dL (2.5-4.5) 05/29/17 05:25 Magnesium 1.6 mg/dL (1.7-2.2) L 05/29/17 05:25 Total Bilirubin 0.3 mg/dL (0.2-1.3) 05/29/17 05:25 AST 90 U/L (14-36) H D 05/29/17 05:25 ALT 61 U/L (7-56) H 05/29/17 05:25 Alkaline Phosphatase 60 U/L (38-126) 05/29/17 05:25 Lactate Dehydrogenase 592 U/L (333-699) 05/29/17 00:00 Total Creatine Kinase 156 U/L (35-230) 05/29/17 00:00 Troponin I < 0.01 ng/mL 05/29/17 00:00 NT-Pro-B Natriuret Pep 580 pg/mL (0-450) H 05/29/17 02:00 Total Protein 6.4 g/dL (5.8-8.3) 05/29/17 05:25 Albumin 3.5 g/dL (3.0-4.8) 05/29/17 05:25 Globulin 2.9 gm/dL 05/29/17 05:25 Albumin/Globulin Ratio 1.2 (1.1-1.8) 05/29/17 05:25 Lipase 159 U/L (23-300) 05/29/17 00:00 Arterial Blood Potassium 2.8 mmol/L (3.6-5.2) L 05/29/17 03:40 Urine Color Light yellow (YELLOW) 05/29/17 02:37 Urine Appearance Clear (CLEAR) 05/29/17 02:37 Urine pH 6.0 (4.7-8.0) 05/29/17 02:37 Ur Specific [place] 1.025 (1.005-1.035) 05/29/17 02:37 Urine Protein 100 mg/dL (<30 mg/dL) H 05/29/17 02:37 Urine Glucose (UA) 100 mg/dL (NEGATIVE) H 05/29/17 02:37 Urine Ketones Negative mg/dL (NEGATIVE) 05/29/17 02:37 Urine Blood Small (NEGATIVE) H 05/29/17 02:37 Urine Nitrate Negative (NEGATIVE) 05/29/17 02:37 Urine Bilirubin Negative (NEGATIVE) 05/29/17 02:37 Urine Urobilinogen 0.2 E.U./dL (<1 E.U./dL) 05/29/17 02:37 Ur Leukocyte Esterase Negative Amanda/uL (NEGATIVE) 05/29/17 02:37 Urine RBC 2 - 5 /hpf (0-2) 05/29/17 02:37 Urine WBC 0 - 2 /hpf (0-6) 05/29/17 02:37 Ur Epithelial Cells 0 - 2 /hpf (0-5) 05/29/17 02:37 Urine Bacteria Few (NEG) 05/29/17 02:37 Urine Opiates Screen Negative (NEGATIVE) 05/29/17 02:37 Urine Methadone Screen Negative (NEGATIVE) 05/29/17 02:37 Ur Barbiturates Screen Negative (NEGATIVE) 05/29/17 02:37 Ur Phencyclidine Scrn Negative (NEGATIVE) 05/29/17 02:37 Ur Amphetamines Screen Negative (NEGATIVE) 05/29/17 02:37 U Benzodiazepines Scrn Negative (NEGATIVE) 05/29/17 02:37 U Oth Cocaine Metabols Negative (NEGATIVE) 05/29/17 02:37 U Cannabinoids Screen Negative (NEGATIVE) 05/29/17 02:37 Alcohol, Quantitative < 10 mg/dL (0-10) 05/29/17 00:00 Attending/Attestation - Attestation I have personally seen and examined this patient.: Yes I have fully participated in the care of the patient.: Yes I have reviewed all pertinent clinical information, including history, physical exam and plan: Yes Notes (Text): Patient today secondary to cardiac arrest due to ventricular arrhythmia. Patient had history of congenital absence of left main artery, coronary artery disease and hypomagnesemia. Patients partner and mother at bedside. Discussed in detail with the family. Family support provided and signed certificate.
--- NOTE | 2017-06-01 08:45 | PN ---
DATE: 05/29/2017 [employer] TECHNICIAN NOTE AND EXPIRATION NOTE SUBJECTIVE: The patient is a 32-year-old female that initially presented to the hospital in cardiac arrest. Patient has the history of congenital absent left main, bypass surgery, AICD and has a history as well of hypomagnesemia. She presented to the emergency room in cardiac arrest, pulmonary edema and metabolic acidosis. Patient in the Intensive Care Unit this morning had cardiac arrest and CPR was conducted x6. Patient was given multiple Epi, magnesium, calcium, bicarbonate and started on vasopressin drip, Levophed drip, amiodarone and did develop rhythm 5 times with 5 separate CPR, but did not respond on the 6th CPR. Cardiology was present, Dr. Fox. Note that the family is present and their desire is to visit with the patient post code. Balwinder Wong MD
== END 2017-05-29 08:51 | DRG 544 ==
LOC: ED 23:34 → ERH 05-29 01:46 → ICU 05-29 04:21
PROVIDERS: ADMIT Internal Medicine; ATTEND Internal Medicine
PROC: 5A1935Z Respiratory Ventilation, Less than 24 Consecutive Hours (ICD-10-PCS; principal; 2017-05-29)
PROC: 0BH17EZ Insertion of Endotracheal Airway into Trachea, Via Natural or Artificial Opening (ICD-10-PCS; 2017-05-29)
PROC: 5A12012 Performance of Cardiac Output, Single, Manual (ICD-10-PCS; 2017-05-29)
PROC: 05HY33Z Insertion of Infusion Device into Upper Vein, Percutaneous Approach (ICD-10-PCS; 2017-05-29)
DX: I46.9 Cardiac arrest, cause unspecified (principal); J96.91 Respiratory failure, unspecified with hypoxia; J81.1 Chronic pulmonary edema; I42.9 Cardiomyopathy, unspecified; E87.2 Acidosis; E83.42 Hypomagnesemia; Q24.5 Malformation of coronary vessels; I49.8 Other specified cardiac arrhythmias; Z95.0 Presence of cardiac pacemaker; Z95.1 Presence of aortocoronary bypass graft